=== PATIENT | male | born 1930 | race Caucasian/White ===

== ENCOUNTER 2017-07-04 21:00 | Inpatient (IN) | payer MEDICARE ==
[~2017-07-04] VITALS: Ht 179.1 cm; Wt 112.6 kg
[~2017-07-04 21:00] MED LIST: ASPI-1026 PO; CETI-193 PO; DILT-19 PO; IPRA42SP EN; IPRAHFA IH; METO-391 PO; OMEG-75 PO; UMEC1DIS IH; VALS160T2 PO
[2017-07-04] MEDS ORDERED: IPRATROPIUM/ALBUTEROL SULFATE 3 ML SOLUTION IH ONE (21:07)
[2017-07-04 21:15] LABS: ABG BASE EXCESS -0.1 mmol/L (-2.0-3.0); ABG HCO3 27.5 mmol/L (21.0-28.0); ABG OXYGEN SATURATION 95.3 % (95.0-99.0); ABG PCO2 57 mmHg (35-48)
[2017-07-04 21:18] LABS: BASOPHILS % (AUTO) 0.6 % (0.0-5.0); EOSINOPHILS % (AUTO) 4.6 % (0.0-8.0); HEMATOCRIT 45.2 % (42-54); LYMPHOCYTES % (AUTO) 33.8 % (21.0-51.0); MEAN CORPUSCULAR HEMOGLOBIN 30.8 pg (27.0-33.0); MEAN CORPUSCULAR HGB CONC 33.9 g/dL (32.0-36.0); MEAN CORPUSCULAR VOLUME 90.7 fL (79-99); NUCLEATED RED BLOOD CELLS 0.1 % (0.0-0.19); PLATELET COUNT (AUTO) 282 K/uL (130-400); RED BLOOD CELL COUNT(AUTO) 4.99 MIL/uL (4.50-6.20); RED CELL DISTRIBUTION WIDTH 15.2 % (11.0-15.5); WHITE BLOOD COUNT (AUTO) 12.4 K/uL (4.8-10.8)
[2017-07-04] MEDS ORDERED: ZOSYN 3.375GM+NS 50ML 50 ML IV ONE (21:27)
[2017-07-04] MEDS ORDERED: LEVOFLOXACIN 500 MG/D5W 100 ML 100 ML ONE (21:27)
[2017-07-04 21:31] LABS: INR 0.95 (0.85-1.15); PARTIAL THROMBOPLASTIN TIME 24.6 SEC (26.3-35.5)
[2017-07-04] MEDS ORDERED: ALBUTEROL SULFATE 0.083% 2.5 MG/3 ML INH IH ONE (21:31)
[2017-07-04 21:47] LABS: CREATINE KINASE MB 5.9 ng/mL (0.5-3.6); CREATINE KINASE, TOTAL 609 U/L (21-232); MYOGLOBIN 196 ng/mL (10-92); TROPONIN I < 0.04 ng/mL (0.00-0.06)
[2017-07-04 21:48] LABS: B-TYPE NATRIURETIC PEPTIDE 28 pg/mL (0-100)
[2017-07-04 21:56] LABS: POTASSIUM 3.8 mmol/L (3.5-5.1)
[2017-07-04 22:01] LABS: ALBUMIN 3.9 g/dL (3.5-5.0); BILIRUBIN,TOTAL 0.4 mg/dL (0.2-1.0); TOTAL PROTEIN, SERUM 7.4 g/dL (6.0-8.3)
[2017-07-04] MEDS ORDERED: IOPAMIDOL-370 100 ML VIAL IV ONE (22:06)
[2017-07-05] VITALS (7 sets, daily range): BP systolic 105–174; BP diastolic 60–89
[2017-07-05] MEDS ORDERED: METHYLPREDNISOLONE SOD SUCC 125MG/2ML VIAL ONE (00:13)
[2017-07-05] MEDS ORDERED: ENOXAPARIN SODIUM 100 MG/1 ML SQ ONE (00:13)
[2017-07-05] MEDS ORDERED: ACETAMINOPHEN 325 MG TAB PO PRN ×2 (00:45)
[2017-07-05] MEDS ORDERED: POTASSIUM CHLORIDE 10% ELIXIR 20 MEQ/15 ML UDCUP PO PRN (00:45)
[2017-07-05] MEDS ORDERED: SODIUM CHLORIDE 0.9% 10 ML VIAL IVP SCH (00:45)
[2017-07-05] MEDS ORDERED: NITROGLYCERIN 0.4 MG SL TAB SL PRN (00:45)
[2017-07-05] MEDS ORDERED: POTASSIUM CHLORIDE 20MEQ/100ML 100 ML IV PRN (00:45)
[2017-07-05] MEDS ORDERED: CLONIDINE HCL 0.1 MG TABLET PO PRN (00:45)
[2017-07-05] MEDS ORDERED: HYDRALAZINE HCL 20 MG/ML VIAL IV PRN (00:45)
[2017-07-05] MEDS ORDERED: LIDOCAINE HCL-MPF 1% 2ML VIAL IJ PRN (00:45)
[2017-07-05] MEDS ORDERED: LACTULOSE 20 GM/30 ML UDCUP PO PRN (00:45)
[2017-07-05] MEDS ORDERED: POTASSIUM CHLORIDE 20 MEQ ERTAB PO PRN (00:45)
[2017-07-05] MEDS ORDERED: METHYLPREDNISOLONE SOD SUCC 125MG/2ML VIAL IVP SCH (01:00)
[2017-07-05] MEDS: LEVOFLOXACIN 500 MG/D5W 100 ML 100 ML IV SCH (01:00)
[2017-07-05] MEDS ORDERED: MORPHINE SULFATE 2 MG/ML 1ML SYG IVP PRN ×2 (01:15)
[2017-07-05] MEDS ORDERED: ALPRAZOLAM 0.25 MG TABLET PO ONE (01:45)
[2017-07-05] MEDS: IPRATROPIUM/ALBUTEROL SULFATE 3 ML SOLUTION IH SCH ×6 (01:53→22:11)
[2017-07-05 03:49] LABS: BASOPHILS % (AUTO) 0.3 % (0.0-5.0); EOSINOPHILS % (AUTO) 0.4 % (0.0-8.0); HEMATOCRIT 42.1 % (42-54); MEAN CORPUSCULAR HEMOGLOBIN 31.7 pg (27.0-33.0); MEAN CORPUSCULAR HGB CONC 34.9 g/dL (32.0-36.0); MEAN CORPUSCULAR VOLUME 90.7 fL (79-99); MONOCYTES % (AUTO) 1.3 % (3.0-13.0); PLATELET COUNT (AUTO) 241 K/uL (130-400); RED BLOOD CELL COUNT(AUTO) 4.63 MIL/uL (4.50-6.20); RED CELL DISTRIBUTION WIDTH 15.2 % (11.0-15.5); WHITE BLOOD COUNT (AUTO) 9.7 K/uL (4.8-10.8)
[2017-07-05 04:27] LABS: CARBON DIOXIDE 29 mmol/L (21-32); CHLORIDE 106 mmol/L (101-111); CREATINE KINASE MB 8.6 ng/mL (0.5-3.6); CREATININE 1.2 mg/dL (0.5-1.5); GLOMERULAR FILTR. RATE CALC 61 mL/min (>60); GLUCOSE,RANDOM 167 mg/dL (70-105); MYOGLOBIN 425 ng/mL (10-92); SODIUM SERUM 142 mmol/L (136-145); TROPONIN I < 0.04 ng/mL (0.00-0.06); UREA NITROGEN, BLOOD 19 mg/dL (7-18)
[2017-07-05 04:53] LABS: CREATINE KINASE, TOTAL 487 U/L (21-232)
[2017-07-05] MEDS: METHYLPREDNISOLONE SOD SUCC 125MG/2ML VIAL IVP SCH ×3 (05:40→21:03)
[2017-07-05] MEDS ORDERED: IPRATROPIUM/ALBUTEROL SULFATE 3 ML SOLUTION IH SCH (06:00)
[2017-07-05] MEDS: FAMOTIDINE 20MG TAB 20 MG TAB PO SCH ×2 (09:15→21:03)
[2017-07-05 10:33] LABS: CREATINE KINASE MB 11.1 ng/mL (0.5-3.6); MYOGLOBIN 414 ng/mL (10-92); TROPONIN I < 0.04 ng/mL (0.00-0.06)
[2017-07-05 10:39] LABS: CREATINE KINASE, TOTAL 551 U/L (21-232)
[2017-07-05] MEDS ORDERED: CHOL200013 PO (17:28)
[2017-07-05] MEDS ORDERED: VITA100014 PO (17:28)
[2017-07-05] MEDS ORDERED: UBID100C10 PO (17:28)
[2017-07-05] MEDS ORDERED: OMEG1CAP31 PO (17:28)
[2017-07-05] MEDS ORDERED: AEC81 PO (17:28)
[2017-07-05 23:19] LABS: APPEARANCE,URINE Turbid (CLEAR); BILIRUBIN,URINE Negative (NEGATIVE); COLOR,URINE Yellow (YELLOW); GLUCOSE, URINE (UA) 250 mg/dL (NEGATIVE); KETONES,URINE Trace mg/dL (NEGATIVE); LEUKOCYTE ESTERASE ,URINE Negative (NEGATIVE); NITRATE,URINE Negative (NEGATIVE); OCCULT BLOOD,URINE Negative (NEGATIVE); PROTEIN,URINE Negative (NEGATIVE)
[2017-07-05 23:40] LABS: BACTERIA,URINE Few /HPF (None Seen); MUCUS,URINE Few LPF (None Seen); RBC,URINE 0-1 /HPF (0-1)
[2017-07-06] MEDS: LEVOFLOXACIN 500 MG/D5W 100 ML 100 ML IV SCH (01:40)
[2017-07-06] MEDS: IPRATROPIUM/ALBUTEROL SULFATE 3 ML SOLUTION IH SCH ×6 (02:17→21:35)
[2017-07-06 03:21] VITALS: BP 125/67
[2017-07-06 04:00] LABS: HEMATOCRIT 40.7 % (42-54); LYMPHOCYTES % (AUTO) 7.1 % (21.0-51.0); MEAN CORPUSCULAR HEMOGLOBIN 30.5 pg (27.0-33.0); MEAN CORPUSCULAR VOLUME 89.7 fL (79-99); MONOCYTES % (AUTO) 2.3 % (3.0-13.0); NEUTROPHILS % (AUTO) 90.6 % (40.0-77.0); PLATELET COUNT (AUTO) 228 K/uL (130-400); RED BLOOD CELL COUNT(AUTO) 4.54 MIL/uL (4.50-6.20); RED CELL DISTRIBUTION WIDTH 15.3 % (11.0-15.5); WHITE BLOOD COUNT (AUTO) 12.3 K/uL (4.8-10.8)
[2017-07-06 04:09] LABS: CREATININE 1.1 mg/dL (0.5-1.5); POTASSIUM 3.9 mmol/L (3.5-5.1)
[2017-07-06] MEDS: METHYLPREDNISOLONE SOD SUCC 125MG/2ML VIAL IVP SCH ×3 (06:10→22:23)
[2017-07-06 07:00] VITALS: BP 128/79
[2017-07-06] MEDS: FAMOTIDINE 20MG TAB 20 MG TAB PO SCH ×2 (08:32→20:55)
[2017-07-06] MEDS ORDERED: VILANTEROL TR IH PRN (10:00)
[2017-07-06] MEDS ORDERED: UMECLIDINIUM BRM IH PRN (10:00)
[2017-07-06 11:00] VITALS: BP 128/72
[2017-07-06 15:30] VITALS: BP 113/53
[2017-07-06 18:58] VITALS: BP 157/84
[2017-07-06] MEDS: FISH OIL 1000 MG/CAP PO SCH ×2 (20:54→20:57)
[2017-07-06] MEDS: CETIRIZINE HCL 5 MG TABLET PO SCH (20:55)
[2017-07-06] MEDS: METOPROLOL TARTRATE 25 MG TAB PO SCH (20:58)
[2017-07-06 23:21] VITALS: BP 126/77
[2017-07-07] VITALS (7 sets, daily range): BP systolic 104–147; BP diastolic 49–94
[2017-07-07] MEDS: IPRATROPIUM/ALBUTEROL SULFATE 3 ML SOLUTION IH SCH ×6 (01:28→21:43)
[2017-07-07] MEDS: LEVOFLOXACIN 500 MG/D5W 100 ML 100 ML IV SCH (01:55)
[2017-07-07 05:05] LABS: HEMATOCRIT 40.4 % (42-54); LYMPHOCYTES % (AUTO) 5.3 % (21.0-51.0); MEAN CORPUSCULAR HEMOGLOBIN 30.5 pg (27.0-33.0); MEAN CORPUSCULAR HGB CONC 33.7 g/dL (32.0-36.0); MEAN CORPUSCULAR VOLUME 90.6 fL (79-99); MONOCYTES % (AUTO) 2.1 % (3.0-13.0); NEUTROPHILS % (AUTO) 92.6 % (40.0-77.0); PLATELET COUNT (AUTO) 224 K/uL (130-400); RED BLOOD CELL COUNT(AUTO) 4.46 MIL/uL (4.50-6.20); RED CELL DISTRIBUTION WIDTH 15.6 % (11.0-15.5); WHITE BLOOD COUNT (AUTO) 14.4 K/uL (4.8-10.8)
[2017-07-07 05:13] LABS: POTASSIUM 4.2 mmol/L (3.5-5.1)
[2017-07-07] MEDS: METHYLPREDNISOLONE SOD SUCC 125MG/2ML VIAL IVP SCH ×3 (06:25→22:31)
[2017-07-07] MEDS: CHOLECALCIFEROL 2000 UNIT PO SCH (09:00)
[2017-07-07] MEDS: UBIDECARENONE 300 MG PO SCH (09:00)
[2017-07-07] MEDS: VITAMIN A 10000 UNIT CAPSULE PO SCH (09:00)
[2017-07-07] MEDS: LOSARTAN 100 MG TABLET PO SCH (10:09)
[2017-07-07] MEDS: DILTIAZEM HCL 120 MG CAP.SR.24H PO SCH (10:09)
[2017-07-07] MEDS: FAMOTIDINE 20MG TAB 20 MG TAB PO SCH ×2 (10:09→20:55)
[2017-07-07] MEDS: METOPROLOL TARTRATE 25 MG TAB PO SCH ×2 (10:09→20:55)
[2017-07-07] MEDS: ASPIRIN 81 MG EC TAB PO SCH (10:09)
[2017-07-07] MEDS ORDERED: THEOPHYLLINE ANHYDROUS 100 MG TAB.SR.12H PO SCH (15:30)
[2017-07-07] MEDS ORDERED: AZTREONAM 1 GM in SODIUM CHLORIDE 0.9% 50 ML IV SCH (15:30)
[2017-07-07] MEDS ORDERED: AZTREONAM 1 GM VIAL IVP SCH (15:45)
[2017-07-07] MEDS: BUDESONIDE 0.5 MG/2 ML INH IH SCH (18:14)
[2017-07-07] MEDS: AZTREONAM 1 GM VIAL IVP SCH (20:54)
[2017-07-07] MEDS: THEOPHYLLINE ANHYDROUS 100 MG TAB.SR.12H PO SCH (20:55)
[2017-07-07] MEDS: DOXYCYCLINE HYCLATE 100 MG TABLET PO SCH (20:55)
[2017-07-07] MEDS: FISH OIL 1000 MG/CAP PO SCH ×2 (20:55→20:56)
[2017-07-07] MEDS: CETIRIZINE HCL 5 MG TABLET PO SCH (20:56)
[2017-07-07] MEDS: OSELTAMIVIR PHOSPHATE 75 MG CAP PO SCH (20:56)
[2017-07-08] VITALS (7 sets, daily range): BP systolic 118–162; BP diastolic 58–88
[2017-07-08] MEDS: IPRATROPIUM/ALBUTEROL SULFATE 3 ML SOLUTION IH SCH ×6 (01:44→22:57)
[2017-07-08 03:47] LABS: HEMATOCRIT 41.3 % (42-54); MEAN CORPUSCULAR HEMOGLOBIN 30.7 pg (27.0-33.0); MEAN CORPUSCULAR HGB CONC 33.9 g/dL (32.0-36.0); MEAN CORPUSCULAR VOLUME 90.6 fL (79-99); PLATELET COUNT (AUTO) 207 K/uL (130-400); RED BLOOD CELL COUNT(AUTO) 4.56 MIL/uL (4.50-6.20); RED CELL DISTRIBUTION WIDTH 15.3 % (11.0-15.5); WHITE BLOOD COUNT (AUTO) 10.6 K/uL (4.8-10.8)
[2017-07-08 04:04] LABS: B-TYPE NATRIURETIC PEPTIDE 46 pg/mL (0-100)
[2017-07-08 04:07] LABS: ALBUMIN 3.1 g/dL (3.5-5.0); BILIRUBIN,TOTAL 0.3 mg/dL (0.2-1.0); MAGNESIUM 2.2 mg/dL (1.80-2.40); PHOSPHORUS 2.8 mg/dL (2.5-4.9); POTASSIUM 4.3 mmol/L (3.5-5.1)
[2017-07-08 04:22] LABS: ABG BASE EXCESS 2.1 mmol/L (-2.0-3.0); ABG HCO3 25.9 mmol/L (21.0-28.0); ABG OXYGEN SATURATION 93.6 % (95.0-99.0); ABG PCO2 38 mmHg (35-48)
[2017-07-08] MEDS: METHYLPREDNISOLONE SOD SUCC 125MG/2ML VIAL IVP SCH ×3 (05:15→22:06)
[2017-07-08] MEDS: BUDESONIDE 0.5 MG/2 ML INH IH SCH ×2 (06:48→19:25)
[2017-07-08] MEDS: UBIDECARENONE 300 MG PO SCH (09:00)
[2017-07-08] MEDS: CHOLECALCIFEROL 2000 UNIT PO SCH (09:00)
[2017-07-08] MEDS: VITAMIN A 10000 UNIT CAPSULE PO SCH (09:35)
[2017-07-08] MEDS: ASPIRIN 81 MG EC TAB PO SCH (09:35)
[2017-07-08] MEDS: THEOPHYLLINE ANHYDROUS 100 MG TAB.SR.12H PO SCH ×2 (09:36→21:40)
[2017-07-08] MEDS: METOPROLOL TARTRATE 25 MG TAB PO SCH ×2 (09:36→21:40)
[2017-07-08] MEDS: FAMOTIDINE 20MG TAB 20 MG TAB PO SCH ×2 (09:36→21:40)
[2017-07-08] MEDS: LOSARTAN 100 MG TABLET PO SCH (09:36)
[2017-07-08] MEDS: DOXYCYCLINE HYCLATE 100 MG TABLET PO SCH ×2 (09:37→21:40)
[2017-07-08] MEDS: OSELTAMIVIR PHOSPHATE 75 MG CAP PO SCH ×2 (09:38→21:40)
[2017-07-08] MEDS: ENOXAPARIN SODIUM 40 MG/0.4 ML SYRINGE SQ SCH (09:38)
[2017-07-08] MEDS: DILTIAZEM HCL 120 MG CAP.SR.24H PO SCH (10:13)
[2017-07-08] MEDS: AZTREONAM 1 GM VIAL IVP SCH ×2 (10:14→21:42)
[2017-07-08] MEDS: FISH OIL 1000 MG/CAP PO SCH ×2 (21:00→21:39)
[2017-07-08] MEDS: CETIRIZINE HCL 5 MG TABLET PO SCH (21:40)
[2017-07-08] MEDS: SODIUM CHLORIDE 0.9% 1000ML 1,000 ML IV SCH (21:57)
[2017-07-09] MEDS: IPRATROPIUM/ALBUTEROL SULFATE 3 ML SOLUTION IH SCH ×6 (02:13→21:58)
[2017-07-09 03:00] VITALS: BP 139/83
[2017-07-09 04:16] LABS: HEMATOCRIT 40.5 % (42-54); MEAN CORPUSCULAR HEMOGLOBIN 30.9 pg (27.0-33.0); MEAN CORPUSCULAR HGB CONC 34.3 g/dL (32.0-36.0); MEAN CORPUSCULAR VOLUME 90.1 fL (79-99); PLATELET COUNT (AUTO) 231 K/uL (130-400); RED BLOOD CELL COUNT(AUTO) 4.49 MIL/uL (4.50-6.20); RED CELL DISTRIBUTION WIDTH 15.3 % (11.0-15.5); WHITE BLOOD COUNT (AUTO) 11.7 K/uL (4.8-10.8)
[2017-07-09 04:33] LABS: MAGNESIUM 2.3 mg/dL (1.80-2.40); PHOSPHORUS 2.5 mg/dL (2.5-4.9); POTASSIUM 3.8 mmol/L (3.5-5.1)
[2017-07-09] MEDS ORDERED: POTASSIUM CHLORIDE 10 MEQ/TAB.SA PO ONE ×4 (04:49→06:11)
[2017-07-09] MEDS: BUDESONIDE 0.5 MG/2 ML INH IH SCH ×2 (06:12→19:39)
[2017-07-09] MEDS: METHYLPREDNISOLONE SOD SUCC 125MG/2ML VIAL IVP SCH ×3 (06:19→21:21)
[2017-07-09 07:00] VITALS: BP 150/76
[2017-07-09] MEDS: SODIUM CHLORIDE 0.9% 1000ML 1,000 ML IV SCH ×2 (07:58→15:00)
[2017-07-09] MEDS: CHOLECALCIFEROL 2000 UNIT PO SCH (09:00)
[2017-07-09] MEDS: UBIDECARENONE 300 MG PO SCH (09:00)
[2017-07-09] MEDS: OSELTAMIVIR PHOSPHATE 75 MG CAP PO SCH ×2 (09:50→21:20)
[2017-07-09] MEDS: DILTIAZEM HCL 120 MG CAP.SR.24H PO SCH (09:50)
[2017-07-09] MEDS: FAMOTIDINE 20MG TAB 20 MG TAB PO SCH ×2 (09:50→21:19)
[2017-07-09] MEDS: VITAMIN A 10000 UNIT CAPSULE PO SCH (09:50)
[2017-07-09] MEDS: ASPIRIN 81 MG EC TAB PO SCH (09:50)
[2017-07-09] MEDS: AZTREONAM 1 GM VIAL IVP SCH ×2 (09:51→21:21)
[2017-07-09] MEDS: METOPROLOL TARTRATE 25 MG TAB PO SCH ×2 (09:51→21:21)
[2017-07-09] MEDS: LOSARTAN 100 MG TABLET PO SCH (09:51)
[2017-07-09] MEDS: DOXYCYCLINE HYCLATE 100 MG TABLET PO SCH ×2 (09:51→21:20)
[2017-07-09] MEDS: THEOPHYLLINE ANHYDROUS 100 MG TAB.SR.12H PO SCH (09:51)
[2017-07-09] MEDS: ENOXAPARIN SODIUM 40 MG/0.4 ML SYRINGE SQ SCH (09:53)
[2017-07-09 11:00] VITALS: BP 130/74
[2017-07-09] MEDS ORDERED: SODIUM CHLORIDE 0.9% IV SCH ×4 (13:45→16:00)
[2017-07-09] MEDS ORDERED: AMINOPHYLLINE IV SCH ×4 (13:45→16:00)
[2017-07-09 16:00] VITALS: BP 131/74
[2017-07-09 19:36] VITALS: BP 143/68
[2017-07-09] MEDS: FISH OIL 1000 MG/CAP PO SCH ×2 (21:00→21:20)
[2017-07-09] MEDS: CETIRIZINE HCL 5 MG TABLET PO SCH (21:20)
[2017-07-09 23:45] VITALS: BP 128/73
[2017-07-10] MEDS: IPRATROPIUM/ALBUTEROL SULFATE 3 ML SOLUTION IH SCH ×6 (02:36→21:37)
[2017-07-10 03:25] LABS: HEMATOCRIT 41.7 % (42-54); MEAN CORPUSCULAR HEMOGLOBIN 30.7 pg (27.0-33.0); MEAN CORPUSCULAR HGB CONC 33.9 g/dL (32.0-36.0); MEAN CORPUSCULAR VOLUME 90.6 fL (79-99); PLATELET COUNT (AUTO) 247 K/uL (130-400); RED CELL DISTRIBUTION WIDTH 15.5 % (11.0-15.5)
[2017-07-10 03:29] VITALS: BP 138/93
[2017-07-10 03:40] LABS: INR 1.02 (0.85-1.15); PARTIAL THROMBOPLASTIN TIME 23.1 SEC (26.3-35.5); PROTHROMBIN TIME 10.7 SEC (9.6-11.6)
[2017-07-10 03:53] LABS: ALANINE AMINOTRANSFERASE 65 U/L (12-78); ALBUMIN 2.9 g/dL (3.5-5.0); ASPARTATE AMINOTRANSFERASE 40 U/L (10-37); BILIRUBIN,TOTAL 0.3 mg/dL (0.2-1.0); CARBON DIOXIDE 27 mmol/L (21-32); CHLORIDE 107 mmol/L (101-111); CREATINE KINASE MB 14.1 ng/mL (0.5-3.6); GLOMERULAR FILTR. RATE CALC 75 mL/min (>60); GLUCOSE,RANDOM 145 mg/dL (70-105); MYOGLOBIN 476 ng/mL (10-92); PHOSPHORUS 2.2 mg/dL (2.5-4.9); POTASSIUM 4.4 mmol/L (3.5-5.1); SODIUM SERUM 142 mmol/L (136-145); TOTAL PROTEIN, SERUM 5.9 g/dL (6.0-8.3); TROPONIN I < 0.04 ng/mL (0.00-0.06); UREA NITROGEN, BLOOD 27 mg/dL (7-18)
[2017-07-10 03:55] LABS: CREATINE KINASE, TOTAL 529 U/L (21-232)
[2017-07-10 04:12] LABS: ABG BASE EXCESS -2.5 mmol/L (-2.0-3.0); ABG HCO3 19.8 mmol/L (21.0-28.0); ABG OXYGEN SATURATION 93.7 % (95.0-99.0); ABG PCO2 28 mmHg (35-48)
[2017-07-10] MEDS: SODIUM CHLORIDE 0.9% 1000ML 1,000 ML IV SCH (04:14)
[2017-07-10] MEDS: METHYLPREDNISOLONE SOD SUCC 125MG/2ML VIAL IVP SCH ×3 (06:08→21:27)
[2017-07-10] MEDS: BUDESONIDE 0.5 MG/2 ML INH IH SCH ×2 (06:24→18:34)
[2017-07-10 07:00] VITALS: BP 130/83
[2017-07-10] MEDS ORDERED: LEVO500T2 PO (08:50)
[2017-07-10] MEDS: CHOLECALCIFEROL 2000 UNIT PO SCH (09:00)
[2017-07-10] MEDS: UBIDECARENONE 300 MG PO SCH (09:00)
[2017-07-10] MEDS: ASPIRIN 81 MG EC TAB PO SCH (09:54)
[2017-07-10] MEDS: DOXYCYCLINE HYCLATE 100 MG TABLET PO SCH ×2 (09:54→21:27)
[2017-07-10] MEDS: LOSARTAN 100 MG TABLET PO SCH (09:54)
[2017-07-10] MEDS: METOPROLOL TARTRATE 25 MG TAB PO SCH ×2 (09:54→21:25)
[2017-07-10] MEDS: VITAMIN A 10000 UNIT CAPSULE PO SCH (09:55)
[2017-07-10] MEDS: AZTREONAM 1 GM VIAL IVP SCH ×2 (09:55→21:26)
[2017-07-10] MEDS: DILTIAZEM HCL 120 MG CAP.SR.24H PO SCH (09:55)
[2017-07-10] MEDS: FAMOTIDINE 20MG TAB 20 MG TAB PO SCH ×2 (09:55→21:27)
[2017-07-10] MEDS: OSELTAMIVIR PHOSPHATE 75 MG CAP PO SCH ×2 (09:55→21:27)
[2017-07-10] MEDS: ENOXAPARIN SODIUM 40 MG/0.4 ML SYRINGE SQ SCH (09:57)
[2017-07-10 11:00] VITALS: BP 140/85
[2017-07-10 16:00] VITALS: BP 136/84
[2017-07-10 19:34] VITALS: BP 130/71
[2017-07-10] MEDS: FISH OIL 1000 MG/CAP PO SCH (21:26)
[2017-07-10] MEDS: CETIRIZINE HCL 5 MG TABLET PO SCH (21:26)
[2017-07-10] MEDS: THEOPHYLLINE ANHYDROUS 100 MG TAB.SR.12H PO SCH (21:26)
[2017-07-10 23:45] VITALS: BP 118/77
[2017-07-11] MEDS: IPRATROPIUM/ALBUTEROL SULFATE 3 ML SOLUTION IH SCH ×6 (02:45→21:46)
[2017-07-11 04:01] VITALS: BP 132/92
[2017-07-11] MEDS: METHYLPREDNISOLONE SOD SUCC 125MG/2ML VIAL IVP SCH (05:23)
[2017-07-11] MEDS: BUDESONIDE 0.5 MG/2 ML INH IH SCH ×2 (06:06→18:15)
[2017-07-11 07:00] VITALS: BP 122/73
[2017-07-11] MEDS: OSELTAMIVIR PHOSPHATE 75 MG CAP PO SCH ×2 (08:42→20:08)
[2017-07-11] MEDS: ASPIRIN 81 MG EC TAB PO SCH (08:42)
[2017-07-11] MEDS: DOXYCYCLINE HYCLATE 100 MG TABLET PO SCH ×2 (08:42→20:07)
[2017-07-11] MEDS: VITAMIN A 10000 UNIT CAPSULE PO SCH (08:42)
[2017-07-11] MEDS: LOSARTAN 100 MG TABLET PO SCH (08:42)
[2017-07-11] MEDS: FAMOTIDINE 20MG TAB 20 MG TAB PO SCH ×2 (08:42→20:07)
[2017-07-11] MEDS: THEOPHYLLINE ANHYDROUS 100 MG TAB.SR.12H PO SCH ×2 (08:42→20:07)
[2017-07-11] MEDS: METOPROLOL TARTRATE 25 MG TAB PO SCH ×2 (08:43→20:07)
[2017-07-11] MEDS: AZTREONAM 1 GM VIAL IVP SCH ×2 (08:43→20:03)
[2017-07-11] MEDS: DILTIAZEM HCL 120 MG CAP.SR.24H PO SCH (08:43)
[2017-07-11] MEDS: UBIDECARENONE 300 MG PO SCH (08:45)
[2017-07-11] MEDS: CHOLECALCIFEROL 2000 UNIT PO SCH (08:45)
[2017-07-11] MEDS: ENOXAPARIN SODIUM 40 MG/0.4 ML SYRINGE SQ SCH (08:46)
[2017-07-11 11:00] VITALS: BP 121/70
[2017-07-11 16:00] VITALS: BP 128/76
[2017-07-11 19:38] VITALS: BP 148/78
[2017-07-11] MEDS: CETIRIZINE HCL 5 MG TABLET PO SCH (20:07)
[2017-07-11] MEDS: FISH OIL 1000 MG/CAP PO SCH (20:07)
[2017-07-11] MEDS: PREDNISONE 20 MG TABLET PO SCH (20:08)
[2017-07-11 23:24] VITALS: BP 128/81
[2017-07-12] MEDS: IPRATROPIUM/ALBUTEROL SULFATE 3 ML SOLUTION IH SCH ×3 (01:48→10:12)
[2017-07-12 03:40] VITALS: BP 140/84
[2017-07-12 03:59] LABS: MEAN CORPUSCULAR HEMOGLOBIN 30.9 pg (27.0-33.0); MEAN CORPUSCULAR HGB CONC 34.2 g/dL (32.0-36.0); MEAN CORPUSCULAR VOLUME 90.4 fL (79-99); PLATELET COUNT (AUTO) 228 K/uL (130-400); RED BLOOD CELL COUNT(AUTO) 4.54 MIL/uL (4.50-6.20); RED CELL DISTRIBUTION WIDTH 15.6 % (11.0-15.5); WHITE BLOOD COUNT (AUTO) 12.1 K/uL (4.8-10.8)
[2017-07-12 04:25] LABS: POTASSIUM 4.1 mmol/L (3.5-5.1)
[2017-07-12] MEDS: BUDESONIDE 0.5 MG/2 ML INH IH SCH (06:23)
[2017-07-12 07:46] VITALS: BP 136/79
[2017-07-12] MEDS: UBIDECARENONE 300 MG PO SCH (09:00)
[2017-07-12] MEDS: AZTREONAM 1 GM VIAL IVP SCH (09:00)
[2017-07-12] MEDS: ENOXAPARIN SODIUM 40 MG/0.4 ML SYRINGE SQ SCH (09:00)
[2017-07-12] MEDS: CHOLECALCIFEROL 2000 UNIT PO SCH (09:00)
[2017-07-12] MEDS: OSELTAMIVIR PHOSPHATE 75 MG CAP PO SCH (11:17)
[2017-07-12] MEDS: METOPROLOL TARTRATE 25 MG TAB PO SCH (11:17)
[2017-07-12] MEDS: FAMOTIDINE 20MG TAB 20 MG TAB PO SCH (11:17)
[2017-07-12] MEDS: THEOPHYLLINE ANHYDROUS 100 MG TAB.SR.12H PO SCH (11:17)
[2017-07-12] MEDS: VITAMIN A 10000 UNIT CAPSULE PO SCH (11:18)
[2017-07-12] MEDS: ASPIRIN 81 MG EC TAB PO SCH (11:18)
[2017-07-12] MEDS: PREDNISONE 20 MG TABLET PO SCH (11:18)
[2017-07-12] MEDS: DOXYCYCLINE HYCLATE 100 MG TABLET PO SCH (11:18)
[2017-07-12] MEDS: LOSARTAN 100 MG TABLET PO SCH (11:18)
[2017-07-12] MEDS: DILTIAZEM HCL 120 MG CAP.SR.24H PO SCH (11:18)
== END 2017-07-12 11:24 | disposition home or self-care (01) | DRG 189 ==
LOC: EDH 21:00 → EDHIP 07-05 00:08 → OBSVTOIN 07-05 00:08 → 2AH 07-05 00:46
PROVIDERS: ADMIT Family Medicine; ATTEND Family Medicine
PROC: 5A09357 Assistance with Respiratory Ventilation, Less than 24 Consecutive Hours, Continuous Positive Airway Pressure (ICD-10-PCS; principal; 2017-07-05)
DX: J96.21 Acute and chronic respiratory failure with hypoxia (principal); E87.2 Acidosis; D68.69 Other thrombophilia; I48.2 Chronic atrial fibrillation; J44.1 Chronic obstructive pulmonary disease with (acute) exacerbation; J96.22 Acute and chronic respiratory failure with hypercapnia; Z99.81 Dependence on supplemental oxygen; I10 Essential (primary) hypertension; Z87.891 Personal history of nicotine dependence; E66.9 Obesity, unspecified; E78.5 Hyperlipidemia, unspecified; I25.10 Atherosclerotic heart disease of native coronary artery without angina pectoris; J98.01 Acute bronchospasm; Z77.090 Contact with and (suspected) exposure to asbestos; Z85.51 Personal history of malignant neoplasm of bladder; Z85.850 Personal history of malignant neoplasm of thyroid; Z88.0 Allergy status to penicillin; Z88.2 Allergy status to sulfonamides; Z91.041 Radiographic dye allergy status; Z68.35 Body mass index [BMI] 35.0-35.9, adult
CPT/HCPCS: 36415; 36600; 71045; 71046; 71250; 78580; 80048; 80053; 81001; 82550; 82553; 82803; 83605; 83735; 83874; 83880; 84100; 84484; 85025; 85027; 85378; 85610; 85730; 87040; 87088; 93005; 93306; 93970; 94640; 94660; 94664; 97039; 99291; A4218; A9540; J0280; J1650; J1956; J2543; J2930; J3490; J7030; J7040; Q9967

== ENCOUNTER 2018-09-19 07:36 | Day surgery (SDC) | payer MEDICARE ==
[2018-09-17 13:55] LABS: BASOPHILS % (AUTO) 0.7 % (0.0-5.0); EOSINOPHILS % (AUTO) 2.4 % (0.0-8.0); HEMATOCRIT 43.5 % (42-54); LYMPHOCYTES % (AUTO) 20.6 % (21.0-51.0); MEAN CORPUSCULAR HEMOGLOBIN 30.4 pg (27.0-33.0); MEAN CORPUSCULAR HGB CONC 33.1 g/dL (32.0-36.0); MEAN CORPUSCULAR VOLUME 91.6 fL (79-99); MONOCYTES % (AUTO) 5.9 % (3.0-13.0); NEUTROPHILS % (AUTO) 70.4 % (40.0-77.0); PLATELET COUNT (AUTO) 303 K/uL (130-400); RED BLOOD CELL COUNT(AUTO) 4.74 MIL/uL (4.50-6.20); RED CELL DISTRIBUTION WIDTH 14.9 % (11.0-15.5); WHITE BLOOD COUNT (AUTO) 8.6 K/uL (4.8-10.8)
[2018-09-17 14:03] LABS: POTASSIUM 4.1 mmol/L (3.5-5.1)
[2018-09-17 14:19] VITALS: BP 126/81
[2018-09-18] MEDS: LEVOFLOXACIN 500 MG/D5W 100 ML 100 ML IV SCH (09:00)
--- NOTE | 2018-09-18 11:10 | NUR ---
ABNORMAL EKG INFORMED DR IRBY OF ABNORMAL EKG, PATIENT HAS HISTORY OF A-FIB. PER DR IRBY, OK TO PROCEED WITH PROCEDURE. NO NEW ORDERS.
[~2018-09-19] VITALS: Ht 177.8 cm; Wt 101.2 kg
[2018-09-19] VITALS (18 sets, daily range): BP systolic 129–162; BP diastolic 62–105
[~2018-09-19 07:36] MED LIST changes: +AEC81 PO; +ASCO-512 PO; -ASPI-1026 PO; +GLUC-56 PO; +HYDR12.54 PO; -IPRA42SP EN; -IPRAHFA IH; +KRIL1CAP4 PO; +LOSA100T58 PO; -METO-391 PO; -OMEG-75 PO; +OMEG1CAP31 PO; +UBID100C10 PO; -UMEC1DIS IH; -VALS160T2 PO; +VITA100014 PO; +VITA400T9 PO
[2018-09-19] MEDS ORDERED: LACTATED RINGERS 1000ML 1,000 ML IV ONE (10:16)
[2018-09-19] MEDS: LEVOFLOXACIN 500 MG/D5W 100 ML 100 ML IV SCH (11:10)
[2018-09-19] MEDS ORDERED: PROPOFOL 10 MG/ML 20ML VIAL IV ONE (11:16)
[2018-09-19] MEDS ORDERED: OPIUM/BELLADONNA ALKALOIDS 1 EACH SUPP.RECT RC ONE (12:04)
[2018-09-19] MEDS ORDERED: MEPERIDINE-PF 25 MG/ML SYG ONE (12:38)
--- NOTE | 2018-09-19 13:30 | NUR ---
PATIENT ARRIVED PATIENT ARRIVED TO UNIT, BROUGHT BY KESHA DENSON FROM PACU. PATIENT AAOX3, RESPIRATIONS UNLABORED, VITAL SIGNS STABLE. PATIENT C/O DISCOMFORT TO PENIS DUE TO ESCAMILLA. ESCAMILLA CATHETER DRAINING PINK TINGED URINE AND LEAKING PINK TINGED URINE FROM ESCAMILLA INSERTION SITE (URETHRA). SIDERAILS UP X2, BED IN LOWEST POSITION, CALL [facility] WITHIN REACH.
[2018-09-19] MEDS ORDERED: PHENAZOPYRIDINE HCL 200 MG TABLET ONE (14:01)
--- NOTE | 2018-09-19 14:30 | NUR ---
LEG BAG ESCAMILLA CATHETER BAG REMOVED AND LEG BAG PLACED ON PATIENT, INSTRUCTED SPOUSE ON ESCAMILLA CATHETER CARE. VERBALIZED UNDERSTANDING.
--- NOTE | 2018-09-19 14:45 | NUR ---
PATIENT NAUSEA PATIENT C/O NAUSEA AND SAYS HE WANTS TO THROW UP. ADMINISTERED ZOFRAN IV.
[2018-09-19] MEDS ORDERED: ONDANSETRON HCL 4 MG/2 ML VIAL ONE (14:54)
--- NOTE | 2018-09-19 15:15 | NUR ---
PATIENT DISCHARGED PATIENT AND SPOUSE PROVIDED DISCHARGE INSTRUCTIONS AND FOLLOW UP APPOINTMENTS PROVIDED. ESCAMILLA CARE INSTRUCTIONS PROVIDED. EXTRA ESCAMILLA BAG PROVIDED TO PATIENT. SPOUSE VERBALIZED UNDERSTANDING OF INSTRUCTIONS. ESCAMILLA DRAINING PINK TINGED URINE. PATIENT'S NAUSEA RELIEVED. PATIENT TAKEN TO PRIVATE VEHICLE VIA WHEELCHAIR.
== END 2018-09-19 15:15 ==
LOC: DAH 07:36
PROVIDERS: ATTEND Urology
DX: D09.0 Carcinoma in situ of bladder (principal); I10 Essential (primary) hypertension; I25.10 Atherosclerotic heart disease of native coronary artery without angina pectoris; R06.02 Shortness of breath; I73.9 Peripheral vascular disease, unspecified; Z90.49 Acquired absence of other specified parts of digestive tract; Z98.890 Other specified postprocedural states; Z88.0 Allergy status to penicillin; I44.0 Atrioventricular block, first degree; Z88.2 Allergy status to sulfonamides; Z91.048 Other nonmedicinal substance allergy status; K21.9 Gastro-esophageal reflux disease without esophagitis; I48.91 Unspecified atrial fibrillation; J44.9 Chronic obstructive pulmonary disease, unspecified; Z85.828 Personal history of other malignant neoplasm of skin
CPT/HCPCS: 36415; 52204; 80048; 85025; 88305; 88341; 88342; 93005; A4344; A4358; A4510; A4600; A5113; J1956; J2175; J2405; J2704; J7120 ×2

== ENCOUNTER → 2019-01-29 | Outpatient (CLI) | payer MEDICARE ==
[~2019-01-29] MED LIST changes: -ASCO-512 PO; -KRIL1CAP4 PO; -OMEG1CAP31 PO; -VITA400T9 PO
== END | disposition home or self-care (01) ==
LOC: RAH 13:13
PROVIDERS: ATTEND Internal Medicine Cardiovascular Disease
DX: G31.9 Degenerative disease of nervous system, unspecified (principal); R27.0 Ataxia, unspecified
CPT/HCPCS: 70450

== ENCOUNTER 2019-02-20 06:47 | Day surgery (SDC) | payer MEDICARE ==
[2019-02-18 14:33] VITALS: BP 139/79
[2019-02-18 14:57] LABS: BASOPHILS % (AUTO) 0.6 % (0.0-5.0); EOSINOPHILS % (AUTO) 4.8 % (0.0-8.0); HEMATOCRIT 43.6 % (42-54); LYMPHOCYTES % (AUTO) 25.4 % (21.0-51.0); MEAN CORPUSCULAR HEMOGLOBIN 29.7 pg (27.0-33.0); MEAN CORPUSCULAR HGB CONC 32.3 g/dL (32.0-36.0); MONOCYTES % (AUTO) 9.4 % (3.0-13.0); NEUTROPHILS % (AUTO) 59.4 % (40.0-77.0); PLATELET COUNT (AUTO) 292 K/uL (130-400); RED BLOOD CELL COUNT(AUTO) 4.74 MIL/uL (4.50-6.20); WHITE BLOOD COUNT (AUTO) 7.2 K/uL (4.8-10.8)
[2019-02-18 15:08] LABS: POTASSIUM 3.7 mmol/L (3.5-5.1)
[2019-02-19] MEDS: MITOMYCIN 40 MG VIAL IV SCH (08:00)
--- NOTE | 2019-02-19 10:35 | NUR ---
ABNORMAL EKG EKG RESULT REPORTED TO DR. IRBY, NO FURTHER ORDERS GIVEN, MAY PROCEED WITH PLANNED PROCEDURE.
[~2019-02-20] VITALS: Ht 177.8 cm; Wt 101.2 kg
[2019-02-20] VITALS (15 sets, daily range): BP systolic 101–154; BP diastolic 50–87
[~2019-02-20 06:47] MED LIST changes: +ASCO500T9 PO; -GLUC-56 PO; +GUAIFENESIN PO; -LOSA100T58 PO; +MEGA RED PO; +MONT10TA24 PO; +OMEG1CAP31 PO; -UBID100C10 PO; -VITA100014 PO; +VITA400C19 PO; +[UNRECOGNIZED DRUG - OTHER] PO
[2019-02-20] MEDS ORDERED: LACTATED RINGERS 1000ML 1,000 ML IV ONE (07:10)
[2019-02-20] MEDS ORDERED: DEXAMETHASONE SOD PHOSPHATE 10MG/ML 1ML VIAL ONE (07:20)
[2019-02-20] MEDS ORDERED: MIDAZOLAM HCL 1 MG/ML 2ML VIAL ONE (07:20)
[2019-02-20] MEDS ORDERED: PROPOFOL 10 MG/ML 20ML VIAL IV ONE (07:20)
[2019-02-20] MEDS ORDERED: ROCURONIUM 10MG/1ML SYR 10 MG/ML ML ONE (07:20)
[2019-02-20] MEDS ORDERED: FENTANYL CITRATE PF 50 MCG/1 ML 5ML AMP IV ONE (07:20)
[2019-02-20] MEDS ORDERED: NEOSTIGMINE 5MG/5ML SYR IV ONE (07:21)
[2019-02-20] MEDS ORDERED: ONDANSETRON HCL 4 MG/2 ML VIAL ONE (07:21)
[2019-02-20] MEDS ORDERED: GLYCOPYRROLATE 1 MG/5 ML SYRINGE ONE (07:21)
[2019-02-20] MEDS: LEVOFLOXACIN 500 MG/D5W 100 ML 100 ML IV SCH ×2 (07:27→08:10)
[2019-02-20] MEDS ORDERED: EPHEDRINE SULFATE 50 MG/ML AMPULE ONE (08:35)
[2019-02-20] MEDS: MITOMYCIN 40 MG VIAL IV SCH (09:00)
[2019-02-20] MEDS ORDERED: PHENAZOPYRIDINE HCL 200 MG TABLET ONE (10:19)
--- NOTE | 2019-02-20 11:09 | NUR ---
PT LEFT VIA WHEELCHAIR IN PVT CAR WITH D/C INSTRUCTIONS GIVEN TO ALONG WITH F/U APPT AND RX SCRIPT. ESCAMILLA IS INTACT AND PATENT, COLOR IS A RED TING, V/S STABLE NO COMPLICATION UPON D/C
== END 2019-02-20 11:09 | disposition home or self-care (01) ==
LOC: DAH 06:47
PROVIDERS: ATTEND Urology
DX: C67.9 Malignant neoplasm of bladder, unspecified (principal); N30.80 Other cystitis without hematuria; I48.91 Unspecified atrial fibrillation; J44.9 Chronic obstructive pulmonary disease, unspecified; I10 Essential (primary) hypertension; K21.9 Gastro-esophageal reflux disease without esophagitis; Z88.0 Allergy status to penicillin; Z88.2 Allergy status to sulfonamides; Z88.7 Allergy status to serum and vaccine; Z88.8 Allergy status to other drugs, medicaments and biological substances; Z91.018 Allergy to other foods; Z79.82 Long term (current) use of aspirin; Z79.899 Other long term (current) drug therapy; Z85.828 Personal history of other malignant neoplasm of skin; Z87.891 Personal history of nicotine dependence; Z98.890 Other specified postprocedural states; Z82.49 Family history of ischemic heart disease and other diseases of the circulatory system; Z82.5 Family history of asthma and other chronic lower respiratory diseases; Z90.49 Acquired absence of other specified parts of digestive tract; Z82.3 Family history of stroke
CPT/HCPCS: 36415; 51720; 52204; 52234; 80048; 85025; 88305; 93005; A4215; A4221; A4222; A4223 ×2; A4344; A4354; A4510; A4600; A4663; A5113; A6260; J1100; J1956; J2250; J2405; J2704; J2710; J3010; J3490 ×2; J7030; J7120; J9280

== ENCOUNTER → 2020-07-12 | Outpatient (CLI) | payer MEDICARE ==
[~2020-07-12] MED LIST changes: +ASCO500T20 PO; -ASCO500T9 PO; -MONT10TA24 PO; +MONT10TA32 PO; +VITA-395 PO; -VITA400C19 PO
== END | disposition home or self-care (01) ==
LOC: RAH 11:04
PROVIDERS: ATTEND Urology
DX: N28.1 Cyst of kidney, acquired (principal)
CPT/HCPCS: 76770

== ENCOUNTER 2021-01-16 09:02 | Day surgery (SDC) | payer MEDICARE ==
[2021-01-11 12:01] LABS: BASOPHILS % (AUTO) 0.7 % (0.0-5.0); EOSINOPHILS % (AUTO) 1.8 % (0.0-8.0); HEMATOCRIT 45.6 % (42-54); LYMPHOCYTES % (AUTO) 24.8 % (21.0-51.0); MEAN CORPUSCULAR HEMOGLOBIN 29.7 pg (27.0-33.0); MEAN CORPUSCULAR HGB CONC 32.5 g/dL (32.0-36.0); MEAN CORPUSCULAR VOLUME 91.6 fL (79-99); MONOCYTES % (AUTO) 7.3 % (3.0-13.0); PLATELET COUNT (AUTO) 253 K/uL (130-400); RED BLOOD CELL COUNT(AUTO) 4.98 MIL/uL (4.50-6.20); RED CELL DISTRIBUTION WIDTH 14.7 % (11.0-15.5); WHITE BLOOD COUNT (AUTO) 6.7 K/uL (4.8-10.8)
[2021-01-11 12:04] LABS: POTASSIUM 4.5 mmol/L (3.5-5.1)
[2021-01-13 11:05] VITALS: BP 144/89
[2021-01-16] VITALS (24 sets, daily range): BP systolic 104–156; BP diastolic 60–99
[~2021-01-16] VITALS: Ht 182.9 cm; Wt 101.9 kg
[~2021-01-16 09:02] MED LIST changes: -AEC81 PO; -ASCO500T20 PO; -CETI-193 PO; -GUAIFENESIN PO; -HYDR12.54 PO; -MEGA RED PO; +METO-391 PO; -MONT10TA32 PO; -OMEG1CAP31 PO; +UMEC1DIS IH; -VITA-395 PO; +VITAMIN A PO; +VITAMIN D3 PO; +[UNRECOGNIZED DRUG - OTHER] NASAL; -[UNRECOGNIZED DRUG - OTHER] PO
[2021-01-16] MEDS ORDERED: LACTATED RINGERS 1000ML 1,000 ML IV ONE (09:51)
[2021-01-16] MEDS ORDERED: IOHEXOL-350 50ML VIAL IV ONE (09:52)
[2021-01-16] MEDS: LEVOFLOXACIN 500 MG/D5W 100 ML 100 ML IV PRN ×2 (09:55→11:58)
[2021-01-16] MEDS ORDERED: MIDAZOLAM HCL 1 MG/ML 2ML VIAL ONE (12:10)
[2021-01-16] MEDS ORDERED: PROPOFOL 10 MG/ML 20ML VIAL IV ONE ×2 (12:10→12:55)
[2021-01-16] MEDS ORDERED: SUCCINYLCHOLINE 200MG/10ML SYR ONE (12:10)
[2021-01-16] MEDS ORDERED: LIDOCAINE PF 100MG/5ML (2%) SYRINGE 5ML ONE (12:10)
[2021-01-16] MEDS ORDERED: FENTANYL CITRATE PF 50 MCG/1 ML 2ML VIAL ONE (12:11)
[2021-01-16] MEDS ORDERED: ROCURONIUM 10MG/1ML SYR 10 MG/ML ML ONE (12:24)
[2021-01-16] MEDS ORDERED: GLYCOPYRROLATE 1 MG/5 ML SYRINGE ONE (12:29)
[2021-01-16] MEDS ORDERED: EPHEDRINE SULFATE 50 MG/ML AMPULE ONE (12:32)
[2021-01-16] MEDS ORDERED: NEOSTIGMINE 5MG/5ML SYR IV ONE (12:43)
[2021-01-16] MEDS ORDERED: ALBUTEROL 0.083% 2.5 MG/3 ML INH IH ONE ×2 (13:49→14:55)
[2021-01-16] MEDS ORDERED: PHENAZOPYRIDINE HCL 200 MG TABLET ONE (14:57)
== END 2021-01-16 15:30 | disposition home or self-care (01) ==
LOC: DAH 09:02
PROVIDERS: ATTEND Urology
DX: C67.9 Malignant neoplasm of bladder, unspecified (principal); R31.0 Gross hematuria; Z87.891 Personal history of nicotine dependence; I10 Essential (primary) hypertension; K21.9 Gastro-esophageal reflux disease without esophagitis; I48.91 Unspecified atrial fibrillation; J44.9 Chronic obstructive pulmonary disease, unspecified; Z88.0 Allergy status to penicillin; Z88.2 Allergy status to sulfonamides; Z88.5 Allergy status to narcotic agent; Z79.899 Other long term (current) drug therapy; Z20.822 Contact with and (suspected) exposure to COVID-19
CPT/HCPCS: 36415; 52204; 74420; 80048; 85025; 87635; 93005; 94640 ×2; A4215; A4221; A4222; A4223; A4344 ×2; A4358; A4600; A4663; A6260; C1758; C9803; J0330; J1956; J2001; J2704 ×2; J2710; J3490 ×2; J7120 ×2; Q9967; J2250; J3010